=== PATIENT | female | born 1965 | race Caucasian/White ===

== ENCOUNTER 2020-03-21 18:48 | Emergency (ER) | payer OTHER ==
[~2020-03-21] VITALS: Ht 160 cm; Wt 74.8 kg
[2020-03-21] MEDS ORDERED: HYDROCODONE/APAP 5/325MG TABLET PO ONE (19:00)
[2020-03-21] MEDS ORDERED: HYDROCODONE/APAP 5/325MG TABLET ONE (19:13)
--- NOTE | 2020-03-21 19:18 | NUR ---
dog bite on the left hand and nose by a stray dog "pitbull". PT AAOX4, VSS. RR EVEN & UNLABORED. DENIES CP, SOB, DIZZINESS, N/V AT THIS TIME. PT SEEN & EVAL'D BY NAVIN MACKAY. MEDICATED FOR PAIN, PT [place] WE[place]. WILL CONT TO MONITOR.
[2020-03-21] MEDS ORDERED: LET SOLN TOPICAL 8 ML UDC TP ONE (19:36)
[2020-03-21] MEDS ORDERED: LIDOCAINE HCL/MPF 1% 30 ML VIAL IJ ONE (19:36)
[2020-03-21] MEDS ORDERED: TDAP [DIPH/PERTUSSIS/TET] 0.5 ML VIAL IM ONE ×2 (19:47→20:00)
--- NOTE | 2020-03-21 20:12 | NUR ---
THOMPSON HOLDEN AT BEDSIDE FOR SUTURING PROCEDURE.
[2020-03-21] MEDS ORDERED: SULFAMETH/TRIMETH 800/160 MG 1 UDTAB TABLET PO ONE (20:30)
[2020-03-21] MEDS ORDERED: CLINDAMYCIN HCL 150 MG CAPSULE PO ONE ×2 (20:30→20:31)
[2020-03-21] MEDS ORDERED: SULFAMETH/TRIMETH 800/160 MG 1 UDTAB TABLET ONE (20:31)
--- NOTE | 2020-03-21 20:42 | NUR ---
TECH AT BEDSIDE FOR BANDAING AND SPLINT APLPICATION.
--- NOTE | 2020-03-21 20:43 | NUR ---
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
--- NOTE | 2020-03-21 20:43 | NUR ---
Patient discharged to home in stable condition. Written and verbal after care instructions given. Patient verbalizes understanding of instruction.
[2020-03-21 20:44] VITALS: BP 123/74
== END 2020-03-21 20:44 | disposition home or self-care (01) ==
LOC: ER 18:51
DX: S61.412A Laceration without foreign body of left hand, initial encounter (principal); S01.21XA Laceration without foreign body of nose, initial encounter; Z98.890 Other specified postprocedural states; Z88.0 Allergy status to penicillin; W54.0XXA Bitten by dog, initial encounter; Y93.89 Activity, other specified; Y92.89 Other specified places as the place of occurrence of the external cause; Y99.8 Other external cause status
CPT/HCPCS: 12002; 12011; 73130; 90471; 90715; 99284; A6403; J3490

== ENCOUNTER 2020-03-28 17:19 | Emergency (ER) | payer OTHER ==
[~2020-03-28] VITALS: Ht 160 cm; Wt 74.8 kg
[2020-03-28] MEDS ORDERED: CLINDAMYCIN 900 MG/6 ML VIAL ONE (17:59)
[2020-03-28] MEDS ORDERED: CLINDAMYCIN 600 MG in IV D5W 100 ML IV ONE (18:00)
--- NOTE | 2020-03-28 18:15 | NUR ---
BIBS FROM HOME TO ER CHAIR 1. AAOX4. NOT IN RESP DISTRESS. AMBULATORY. CAME INFOR A WOUND CHECK ON HER L HAND S/P DOG BITES. SUTURE INTACT BUT NOTED REDNESS AND WHITE TISSUE BUT NO DRAINAGE. THOMPSON, WAS AT THE BEDSIDE. IV LINE ESTABLISHED ON R AC 20G. BLOOD DRAWN AND GIVEN TO ADMISSIONS SUPERVISOR. MEDICATED ORDERED
--- NOTE | 2020-03-28 19:15 | NUR ---
Patient discharged to home in stable condition. Written and verbal after care instructions given. Patient verbalizes understanding of instruction.IV removed. Catheter intact and site benign. Pressure and 4x4 applied to site. No bleeding noted. Pt ambulatory with a steady gait
[2020-03-28 19:17] VITALS: BP 125/75
== END 2020-03-28 19:19 | disposition home or self-care (01) ==
LOC: ER 17:19
DX: S01.21XD Laceration without foreign body of nose, subsequent encounter (principal); S61.412D Laceration without foreign body of left hand, subsequent encounter; Z88.0 Allergy status to penicillin; Z98.890 Other specified postprocedural states; X58.XXXD Exposure to other specified factors, subsequent encounter
CPT/HCPCS: 87040 ×2; 87070; 96365; 99284; J3490; J7060; J7030

== ENCOUNTER 2020-03-31 19:29 | Emergency (ER) | payer OTHER ==
[~2020-03-31] VITALS: Ht 160 cm; Wt 74.8 kg
[2020-03-31 19:30] VITALS: BP 120/84
== END 2020-03-31 20:25 | disposition home or self-care (01) ==
LOC: ER 19:38
DX: S61.412D Laceration without foreign body of left hand, subsequent encounter (principal); Z98.890 Other specified postprocedural states; Z88.0 Allergy status to penicillin; W54.0XXD Bitten by dog, subsequent encounter

== ENCOUNTER 2023-02-20 20:42 | Emergency (ER) | payer OTHER ==
[~2023-02-20] VITALS: Ht 160 cm; Wt 56.2 kg
[2023-02-20] MEDS ORDERED: ONDANSETRON HCL/PF 4 MG/2 ML VIAL ONE (21:22)
[2023-02-20] MEDS ORDERED: FAMOTIDINE/PF INJ 20 MG/2 ML VIAL IV ONE ×2 (21:23→21:30)
[2023-02-20] MEDS ORDERED: IV NS 0.9% 1,000 ML BAG IV ONE (21:30)
[2023-02-20] MEDS ORDERED: ONDANSETRON HCL/PF 4 MG/2 ML VIAL IVP ONE (21:30)
[2023-02-20 21:44] LABS: BASOPHILS % (AUTO) 0.4 % (0.0-2.0); EOSINOPHILS # (AUTO) 0.2 K/uL (0.0-0.7); EOSINOPHILS % (AUTO) 2.7 % (0.0-6.0); HEMATOCRIT 43 % (33-45); HEMOGLOBIN 14.5 g/dL (11.5-14.8); LYMPHOCYTES # (AUTO) 1.8 K/uL (0.8-4.8); LYMPHOCYTES % (AUTO) 26.4 % (20.0-44.0); MEAN CORPUSCULAR HEMOGLOBIN 30 PG (26.0-33.0); MEAN CORPUSCULAR HGB CONC 34 g/dl (31.0-36.0); MEAN CORPUSCULAR VOLUME 90 fL (82-100); MONOCYTES # (AUTO) 0.7 K/uL (0.1-1.30); NEUTROPHILS # (AUTO) 4.1 K/uL (1.8-8.9); NEUTROPHILS % (AUTO) 60.5 % (43.0-81.0); PLATELET COUNT (AUTO) 276 K/uL (150-450); RED BLOOD CELL COUNT(AUTO) 4.83 MIL/uL (4.0-5.2); RED CELL DISTRIBUTION WIDTH 13.3 % (11.5-15.0); WHITE BLOOD COUNT (AUTO) 6.8 K/uL (4.3-11.0)
[2023-02-20 22:04] LABS: ALBUMIN 4.5 g/dL (3.4-5.0); BILIRUBIN,DIRECT 0.2 mg/dL (0.0-0.2); BILIRUBIN,TOTAL 0.6 mg/dL (0.2-1.0); CALCIUM, SERUM 9.7 mg/dL (8.5-10.1); CREATININE 1.1 mg/dL (0.6-1.3); POTASSIUM 4.3 mmol/L (3.5-5.1); TOTAL PROTEIN, SERUM 8.1 g/dL (6.4-8.2)
[2023-02-20] MEDS ORDERED: METOCLOPRAMIDE HCL 10 MG/2 ML VIAL IV ONE (22:30)
[2023-02-20] MEDS ORDERED: METOCLOPRAMIDE HCL 10 MG/2 ML VIAL ONE (22:33)
[2023-02-20 22:56] LABS: APPEARANCE,URINE CLEAR (CLEAR); BILIRUBIN,URINE NEGATIVE (NEGATIVE); BLOOD, URINE NEGATIVE Ery/uL (NEGATIVE); COLOR,URINE YELLOW (YELLOW); KETONES,URINE TRACE mg/dL (NEGATIVE); LEUKOCYTE ESTERASE ,URINE NEGATIVE (NEGATIVE); NITRITE, URINE NEGATIVE (NEGATIVE); PROTEIN,URINE NEGATIVE (NEGATIVE); UGLUCOSE NEGATIVE (NEGATIVE); UROBILINOGEN,URINE 0.2 EU/dL (0.2)
[2023-02-20] MEDS ORDERED: METO-295 PO (23:33)
[2023-02-20 23:48] VITALS: BP 110/73; TEMP 98.4; O2SAT 99
== END 2023-02-20 23:49 | disposition home or self-care (01) ==
LOC: ER 20:47
DX: R19.7 Diarrhea, unspecified (principal); R11.2 Nausea with vomiting, unspecified; F32.A Depression, unspecified; Z98.890 Other specified postprocedural states; Z88.0 Allergy status to penicillin
CPT/HCPCS: 99284; 96374; 96375; 96361; 85025; 80048; 83690; 80076; 81003; 36415; J3490; J2765; J2405; J7030

== ENCOUNTER 2024-08-08 12:18 | Emergency (ER) | payer BC, OTHER ==
[~2024-08-08] VITALS: Ht 160 cm; Wt 49.0 kg
[~2024-08-08 12:18] MED LIST: METO-295 PO
[2024-08-08 12:35] LABS: BASOPHILS % (AUTO) 0.6 % (0.0-2.0); EOSINOPHILS # (AUTO) 0.1 K/uL (0.0-0.7); EOSINOPHILS % (AUTO) 2.5 % (0.0-6.0); HEMATOCRIT 43 % (33-45); HEMOGLOBIN 14.7 g/dL (11.5-14.8); LYMPHOCYTES # (AUTO) 2.4 K/uL (0.8-4.8); LYMPHOCYTES % (AUTO) 40.7 % (20.0-44.0); MEAN CORPUSCULAR HEMOGLOBIN 31 PG (26.0-33.0); MEAN CORPUSCULAR HGB CONC 35 g/dl (31.0-36.0); MEAN CORPUSCULAR VOLUME 90 fL (82-100); MONOCYTES # (AUTO) 0.5 K/uL (0.1-1.30); MONOCYTES % (AUTO) 8.5 % (2.0-12.0); NEUTROPHILS # (AUTO) 2.8 K/uL (1.8-8.9); NEUTROPHILS % (AUTO) 47.7 % (43.0-81.0); PLATELET COUNT (AUTO) 342 K/uL (150-450); RED BLOOD CELL COUNT(AUTO) 4.74 MIL/uL (4.0-5.2); RED CELL DISTRIBUTION WIDTH 12.6 % (11.5-15.0); WHITE BLOOD COUNT (AUTO) 5.8 K/uL (4.3-11.0)
[2024-08-08 12:55] LABS: CALCIUM, SERUM 9.4 mg/dL (8.5-10.1); CARBON DIOXIDE 31 mmol/L (21-32); CHLORIDE 99 mmol/L (98-107); CREATININE 1.1 mg/dL (0.6-1.3); GLUCOSE 88 mg/dL (74-106); POTASSIUM 4.5 mmol/L (3.5-5.1); SODIUM SERUM 137 mmol/L (136-145); UREA NITROGEN, BLOOD 7 mg/dL (7-18)
[2024-08-08] MEDS: IV NS 0.9% 1,000 ML BAG IV ONE (13:40)
[2024-08-08 16:51] VITALS: BP 117/77; TEMP 97.3; O2SAT 99
== END 2024-08-08 16:52 | disposition home or self-care (01) ==
LOC: ER 12:20
DX: R55 Syncope and collapse (principal); R42 Dizziness and giddiness; R53.1 Weakness; G89.29 Other chronic pain; R53.83 Other fatigue; R94.6 Abnormal results of thyroid function studies; R07.9 Chest pain, unspecified; R00.0 Tachycardia, unspecified; R06.02 Shortness of breath; F41.9 Anxiety disorder, unspecified; F32.A Depression, unspecified; Z88.0 Allergy status to penicillin
CPT/HCPCS: 99285; 96360; 71045; 93005; 85025; 80048; 85378; 36415; 84443; 84484 ×2; J7030